=== PATIENT | female | born 1975 | race Caucasian/White ===

== ENCOUNTER → 2017-10-01 10:20 | Outpatient (CLI) | payer OTHER, SELFPAY ==
[2017-10-01 10:36] LABS: Bacteria Urine None Seen; RBC Urine None Seen (0-5/HPF)
[2017-10-01 12:00] LABS: Appearance Urine UA CLEAR; Bilirubin Urine UA NEGATIVE (NEGATIVE); Color Urine UA YELLOW; Glucose Urine UA NEGATIVE (Normal); Ketones Urine UA NEGATIVE (NEGATIVE); Leukocyte Esterase Urine UA NEGATIVE (NEGATIVE); Nitrite Urine UA Negative (Negative); Occult Blood Urine UA TRACE-LYSED (Negative); Protein Urine UA NEGATIVE (Negative); Specific Gravity Urine UA >=1.030 (1.000-1.035); Urobilinogen Urine UA 0.2 E.U./dL (0.2)
[2017-10-01 12:09] LABS: Add Manual Diff / Slide Review NO; Eosinophils Percent Auto 2.1 % (2-4); Hematocrit 34.7 % (36-46); Hemoglobin 11.4 g/dL (12.0-16.0); Lymphocytes Percent Auto 33.5 % (25-40); Mean Corpuscular HGB Conc 32.8 % (30-36); Mean Corpuscular Hemoglobin 29.8 PG (26-34); Mean Corpuscular Volume 91.1 fL (80-100); Monocytes Percent Auto 7.9 % (3-14); Neutrophils Absolute Auto 3400 /uL (3000-5900); Neutrophils Percent Auto 55.5 % (50-75); Platelet Count 328 X10^3/uL (150-400); Red Blood Cell Count 3.81 X10^6/uL (4.0-5.2); White Blood Cell Count 6.1 X10^3/uL (4.5-11.0)
[2017-10-01 12:26] LABS: Blood Urea Nitrogen 12 mg/dL (7-17); Calcium 7.9 mg/dL (8.4-10.2); Carbon Dioxide 28 mmol/L (22-32); Chloride 102 mmol/L (98-107); Estimated Glomerular Filt Rate > 60.0 mL/min (>60); Glucose 94 mg/dL (70-100); HEMOLYSIS < 15 (0-50); Potassium 4.7 mmol/L (3.4-5.1); Sodium 141 mmol/L (137-145); WBC Urine 5-10/HPF (0-5/HPF)
[2017-10-01 12:27] LABS: Amorphous Sediment Urine 2+; Squamous Epithelial Cell Urine 5-10 /HPF
== END ==
PROVIDERS: PCP Family Medicine; Visit Provider Obstetrics & Gynecology
DX: N93.9 Abnormal uterine and vaginal bleeding, unspecified (principal)
CPT/HCPCS: 36415; 80048; 81001; 85025; 86850; 86900; 86901; 87086

== ENCOUNTER 2017-10-04 09:55 | Inpatient (IN) | payer OTHER, SELFPAY ==
[2017-10-04] VITALS (11 sets, daily range): BP systolic 104–133; BP diastolic 64–86; PULSE 70–86; RESP 10–16; TEMP 36.3–36.7; O2SAT 94–99; BMI 47.2; BMI 48.0
--- NOTE | 2017-10-04 | PATH_ITS ---
[facility] Accession Number: [id number] . 01 Material submitted: . UTERUS AND BILATERAL FALLOPIAN TUBES . 02 Diagnosis: Uterus and Bilateral Fallopian Tubes, Laparoscopic-Assisted Vaginal Hysterectomy with Bilateral Salpingectomy (Weight 245 grams): Cervix with no significant histomorphologic abnormality. Endocervix with no significant histomorphologic abnormality. Weakly proliferative endometrium with stromal pseudodecidualized change, suggestive of possible exogenous hormone effect. Negative for glandular hyperplasia, cytologic atypia, and malignancy. Myometrium with involvement by adenomyosis and with multiple intramural leiomyomas (0.3-1.8 cm in greatest dimension). Uterine serosa with focal adhesions, non-specific. Segments of fallopian tube x 2 with benign paratubal cysts (0.1-0.7 cm in greatest dimension); negative for atypia and malignancy. MR/10/06/2017 . 02 Electronically signed: . Kaylie Grossman MD, Pathologist NPI- [id number] . 01 Gross description: . Received in formalin, labeled uterus and bilateral fallopian tubes, is a uterus (245 grams, 6.8 cm AP, 14.5 cm SI, 7.5 cm ML) and two detached fimbriated fallopian tube segments (tube #1: length-1.6 cm, diameter-0.8 cm; tube #2: length-2.0 cm, diameter-0.7 cm). The specimen cannot be oriented as to anterior and posterior. The ovaries are absent. The cervix (2.0 cm AP, 3.0 cm ML) has a transverse os and patent endocervical canal. The endometrium (average thickness-0.1 cm) is arteaga-pink smooth and flat. The myometrium (thickness - 3.5 cm) is arteaga-white and contains multiple solid firm white whorled well-circumscribed homogenous nodules (0.3 x 0.2 x 0.1 cm - 1.8 x 1.5 x 1.2 cm). The serosa is pale arteaga smooth and shiny. The fallopian tubes have dark maroon smooth and shiny serosa and multiple paratubal cysts (0.1 cm - 0.7 cm) containing clear colorless fluid. The lumens are arteaga and unremarkable. Section code: (A1) cervix; (A2) cervix, opposite side; (A3-A5) endomyometrium; (A6-A8) endomyometrium, opposite side; (A9) fallopian tube segment #1, bivalved, entirely submitted; (A10) fallopian tube segment #2, bivalved, entirely submitted. ([id number]) /[facility] . 02 Pathologist provided ICD-10: N92.4 . 02 CPT . 765645 Performed at: [facility] [address] [address], [place], [place] [id number] MD Abdiel Yee MD Phone: [phone] Performed at: 02 [facility] [place] [address] [address] [place] [id number] MD Brando Cheney MD Phone: [phone]
[2017-10-04] MEDS: LACTATED RINGERS 1,000 ML 100 ML IV ×2 (11:08→16:45)
--- NOTE | 2017-10-04 11:09 | SUR.PREOP ---
pt took her own amlodipine, atenolol and levothyroxine at home at 0815 today
--- NOTE | 2017-10-04 11:26 | PM.PREOP ---
Pre-operative Note Interval Note Pre-op Check: Yes History & Physical Reviewed by Physician Changes: No
[2017-10-04] MEDS: CEFAZOLIN 2 GM/100 ML FROZ.PIGGY IV (11:50)
--- NOTE | 2017-10-04 12:32 | SUR.OPER ---
Lithotomy on padded OR bed. [place] Pad Positioner under torso. Head on pillow, arms foam padded on padded armboards and secured. Bilateral arms <90 abduction. Legs secured in padded yellow fins stirrups.
[2017-10-04] MEDS: BUPIVACAINE 0.25% (PF) VIAL 30 ML INJ (12:41)
[2017-10-04] MEDS: LIDOCAINE 1% W/EPI INJ 30 ML INJ (12:42)
[2017-10-04] MEDS: ACETAMINOPHEN IV 1,000 MG/100 ML VIAL 400 MG IV (13:24)
[2017-10-04] MEDS: LACTATED RINGERS 1,000 ML 42 ML IV (13:43)
--- NOTE | 2017-10-04 15:35 | PM.GYNOP.1 ---
Operative Date/Time/Diagnoses Date of procedure: 10/04/17 Time of procedure: 12:00 Pre-op diagnosis: Abnormal uterine bleeding Post-op diagnosis: same (And pelvic adhesions) Procedure: Procedures Operation Date: 10/04/17 11:15 Actual Procedures Side Surgeon p Laproscopic Assisted Vaginal Hysterectomy with Bilateral Salpingectomy and lysis of adhesions Not Applicable Cristy Bella MD Indications: The patient is a 42-year-old 4, para 3, abortus 2 female here for hysterectomy for definitive surgical management of menorrhagia. Her symptoms increased after her thyroidectomy in 2012. She has been using a bilateral tubal ligation for contraception since 2009. Cycles occur monthly and last 5-7 days. The 1st 2 days she goes through 10-12 tampons each day and is unable to work due to gushes and passage of frequent clots, which require uses the restroom every 20-30 minutes. She denies any dysmenorrhea or bleeding between menses. She states that she was hospitalized October 2016 when she was known to have severe anemia and hypocalcemia. Transfusion was nearly indicated, but she received IV iron and calcium supplementation only during that stay. She denies any lightheadedness or dizziness. She does have nausea and cramping with her cycles. Past trials of control pills have caused itching and swelling, and she declines progestin intrauterine device. She is currently using the NuvaRing and control pills to manage her bleeding while awaiting surgery. After review of her management options, including medical versus surgical (including hysteroscopy, Dilation and Curettage, and ablation versus hysterectomy), she desired definitive surgical management in the form of hysterectomy. She has had 2 prior sections, and we discussed the possible need for abdominal hysterectomy but will try for laparoscopic-assisted approach. The risks, benefits, limitations, alternatives, and expectations of surgery were discussed, and the consent was reviewed and signed prior to the surgery. Surgeon: Cristy Bella [employer] Worker: Khurram Pimentel Anesthesia Type: General and Local (0.5% marcaine, and 1% lidocaine with epi) Operative Notes Findings: Exam under anesthesia: Uterus anteverted and approximately 8 weeks in size. No adnexal masses were palpable. Operative findings: Dense adhesions were present from the anterior uterine serosa to the anterior peritoneum, primarily at the level of the bladder and superiorly. There were also adhesions involving the round ligaments bilaterally. Overall, the extensive nature of the adhesions the manipulation of the uterus difficult during the laparoscopy. The ovaries appeared normal, and no cysts or endometriosis lesions were noted. The fallopian tubes were status post ligation but otherwise normal in appearance. There was a dense omental adhesion to the anterior abdominal wall, just behind the umbilicus. This was left in situ as it was extensive and not interfering with the surgery. The liver appeared slightly rounded, and the gallbladder appeared enlarged. No other abdominal findings were notable. Closure Type: primary Specimen(s): left tube, right tube and uterus (Uterus, cervix, and bilateral fallopian tubes sent as one specimen) Applied: catheter Estimated blood loss (mL): 100 Blood products transfused: none Procedure in detail: The patient was taken to the operating room, where general endotracheal anesthesia was administered without complications. The patient was placed into the low dorsal lithotomy position with her lower extremities in [place] stirrups. Exam under anesthesia was then performed with the findings noted above. Perineum, vagina, and abdomen were then prepped and draped in a sterile fashion. A Villarreal catheter was then placed. Procedure time-out was then performed. Attention was first turned to the perineum for placement of the uterine manipulator. A sterile bivalve speculum was inserted into the vagina, then the anterior lip of the cervix was grasped with a single-tooth tenaculum. The cervix was then serially dilated using Tip dilators until a ZUMI uterine manipulator could be advanced. The balloon was inflated, then the tenaculum and speculum removed from the vagina. Local anesthetic was then injected infraumbilically using 0.25% Marcaine with epinephrine. A vertical skin incision was then made with a scalpel below the umbilicus measuring approximately 7 mm in length. The abdominal wall was then grasped and tented up while a Veress needle was inserted through the incision. Saline drop test was suggestive of intraperitoneal placement. Carbon dioxide gas insufflation was then performed with appropriate opening pressures noted. After instilling approximately 2 L of carbon dioxide, a 5 mm 0 degree laparoscope within a 5 mm trocar was inserted through the anterior layers of the abdominal wall using Optiview technique. The abdomen and pelvis were visualized with the findings as noted above. The patient was placed into Trendelenburg position for better visualization. A second and third trocar was inserted at the patient's lower quadrants. These were done by first instilling local anesthetic, then incising the skin and inserting a 5 mm trocar under direct visualization using the laparoscopic. An atraumatic grasper was then utilized to manipulate the tissue and improve visualization throughout the pelvis. Attention was 1st turned to dissection of the anterior uterine adhesion. While pulling gentle traction on the anterior abdominal wall, the adhesions were freed from the uterus using the Olympus PlasmaKinetic. Once the dense adhesion was , the remainder of the surrounding tissue with gentle traction. Attention was 1st turned to the right fallopian tube, which was grasped at the distal end. After applying gentle traction the distal then proximal portions of the fallopian tube, the tissue was from the underlying mesosalpinx and ovary using the Olympus PlasmaKinetic. Gentle traction was then applied on the left distal and proximal portions of the left fallopian tube which was pulled medially and superiorly, and the left tube from the underlying mesosalpinx using using the Olympus PlasmaKinetic. The left round ligament was then cross clamped, cauterized, and cut. Residual bleeding was controlled with Bovie cautery. There were dense adhesions on this side, but once dissected, the tissue started to separate easily, and the left side of the broad ligament was carried down to start the left aspect of the bladder flap dissection. Dense adhesions from the bladder were noted at the midline, and initial dissection was performed using the PlasmaKinetic then gentle traction. The left utero-ovarian pedicle was then cross clamped, cauterized, and cut, freeing the left ovary from the uterus. Some residual para uterine tissue was freed with Bovie cautery and gentle traction, skeletonizing the left uterine vessels. The left uterine vein and artery were then cross clamped, cauterized, and cut, and additional cautery applied as needed to achieve hemostasis. Attention was then turned to the patient's right adnexa. The right round ligament was cross clamped, cauterized, and cut, then the right anterior leaf of the broad ligament was undermined with the PlasmaKinetic to create the right side of the bladder flap using Bovie cautery. This incision was extended to the midline until the dense adhesion was encountered. The right utero-ovarian pedicle was cross clamped, cauterized, and cut, freeing the right ovary from the uterus. The right uterine vessels were then skeletonized, cross clamped cauterized, and cut. Additional cautery was applied as needed to achieve hemostasis. The pelvis was then irrigated and suctioned. The dense bladder adhesion at the midline was then dissected a bit more using the PlasmaKinetic. Once hemostasis was ensured attention was turned to the perineum for the vaginal portion of the case. Instruments were removed from the abdomen, leaving the trocars in place. The majority of the carbon dioxide gas was allowed to escape. The uterine manipulator was removed. A sterile weighted speculum was placed in the posterior vagina and a [place] placed in the anterior vagina. The cervix was grasped with double tooth tenaculum, then 1% lidocaine with epinephrine was injected circumferentially for hemostasis. A circumferential incision was then made with Bovie cautery. Using blunt dissection with the lap cutter truer operator's finger the vaginal mucosa was gently pushed back off the cervix better visualizing the plane for the anterior-posterior peritoneal entry. The posterior peritoneum was grasped and incised sharply using Metzenbaum scissors. The midline of the posterior vaginal cuff and peritoneum was then tagged with an 0 Vicryl suture for later identification. The Auvard speculum was then inserted into the posterior peritoneum. The anterior peritoneum could not be easily entered due to adhesions. Therefore, the decision was made to proceed with additional inferior pedicles until the peritoneum could be entered.. The left uterosacral ligament was cross clamped with a Janelle clamp then cut and suture ligated with an 0 Vicryl suture in a Janelle stitch fashion. This was tagged for later identification. This step was performed on the right uterosacral ligament clamped then cut and suture ligated with an 0 Vicryl suture. The right cardinal and inferior uterine vessels were then cross clamped with the Janelle clamp cut and suture ligated with an 0 Vicryl suture. This step was then performed on the patient's left cardinal and uterine vessels as well. The anterior peritoneum was then entered bluntly using a combination of pressure with the lap cutter truer operator's fingers and then placement of the [place]. Two additional pedicles were cross-clamped, cut, and suture ligated with an 0 Vicryl on the patient's right side. The uterus was then inverted and delivered through the vaginal opening. One additional small pedicle on each side was cross clamped with a Janelle clamp then cut to free the uterus and fallopian tubes from the surrounding para uterine tissue. These pedicles were then suture ligated with an 0 Vicryl suture in a [id number] fashion. The uterus and bilateral fallopian tubes were then removed through the vagina. The pedicles were inspected. Some residual bleeding was controlled with [id number] sutures as needed. The peritoneum was then closed with a pursestring suture of 0 Vicryl, starting anteriorly at the bladder peritoneum including both uterosacral ligaments and skiving across the posterior peritoneum. This was tied down, then the vagina was then irrigated with sterile saline. The vaginal mucosa was then closed with serial [id number] sutures of 0 Vicryl. Carbon dioxide gas was then reinflated into the abdomen. The cuff was irrigated and suctioned. Some residual bleeding anterior to the cuff was controlled with the PlasmaKinetic. The omental adhesion was visualized and noted to be hemostatic. The ovaries and adhesion dissection areas were examined and no residual bleeding was noted. At this point the laparoscopic portion of the procedure was deemed complete. The carbon dioxide gas was allowed to escape and the trocars removed from the abdomen. The trocar sites were then closed with 4-0 Monocryl in a subcuticular fashion. Exofin skin glue was then applied. The sponge-stick was then removed from the vagina. At this point the procedure was deemed complete. Sponge, lap, and needle count were correct x3. The patient was subsequently awakened, extubated, and transferred to the PACU in stable condition. Complications: none Post-operative Condition: stable Disposition: Acute Care Plan for aftercare: Admit to PACU then the islas.
--- NOTE | 2017-10-04 15:43 | SUR.PHASEI ---
stable pacu stay, immediately placed on cpap with 4 l now 2l o2. sats maintained pt transfered up to room 202 via bed on n/c 02 at 3/l and left in stable condition. aly pad c/d/i. abdomen with glued puncture sites intact.
--- NOTE | 2017-10-04 18:00 | SUR.PHASEI ---
pt after dressing became nauseated and vomited 100 mls of yellow fluid. pt felt better afterwards and was ready to go. pt left in stable condition.
[2017-10-04] MEDS: KETOROLAC 30 MG/ML VIAL IV (18:05)
[2017-10-04] MEDS: METOCLOPRAMIDE 10 MG/2 ML INJ IV (18:07)
--- NOTE | 2017-10-04 19:03 | PC.NURSE ---
NAUSEA BETTER NOW AND PAIN COVERED WITH TORADOL,DENIES NEEDS AT THIS TIME.
[2017-10-04] MEDS: DOCUSATE 250 MG CAPSULE PO (20:17)
[2017-10-04] MEDS: OXYCODONE/ACETAMINOPHEN 5/325 TABLET 2 TAB PO (21:13)
[2017-10-05] VITALS (7 sets, daily range): BP systolic 104–133; BP diastolic 66–89; PULSE 76–91; RESP 15–17; TEMP 36.6–37.1; O2SAT 95–99
[2017-10-05] MEDS: OXYCODONE/ACETAMINOPHEN 5/325 TABLET 2 TAB PO ×2 (01:16→07:59)
[2017-10-05] MEDS: LACTATED RINGERS 1,000 ML 100 ML IV (02:15)
--- NOTE | 2017-10-05 05:06 | PC.NURSE ---
NOC shift: Pt requested prn pain medication x1 with good results, [place] cath is patent draining clear yellow urine, cpap with 2L bleed in at night. Lap site DISABILITY ADVOCATE and edges well approximated. Minimal assist with repositioning in bed. Pt splinting ABD to cough, deep breathing cough encouraged.
[2017-10-05 07:16] LABS: Add Manual Diff / Slide Review NO; Basophils Percent Auto 0.2 % (0-2); Hematocrit 31.6 % (36-46); Hemoglobin 10.4 g/dL (12.0-16.0); Lymphocytes Percent Auto 11.6 % (25-40); Mean Corpuscular HGB Conc 32.9 % (30-36); Mean Corpuscular Hemoglobin 29.9 PG (26-34); Mean Corpuscular Volume 90.7 fL (80-100); Monocytes Percent Auto 5.6 % (3-14); Neutrophils Absolute Auto 9200 /uL (3000-5900); Neutrophils Percent Auto 82.6 % (50-75); Platelet Count 312 X10^3/uL (150-400); Red Blood Cell Count 3.48 X10^6/uL (4.0-5.2); White Blood Cell Count 11.2 X10^3/uL (4.5-11.0)
[2017-10-05 07:21] LABS: BUN Creatinine Ratio 13.8 (6-22); Blood Urea Nitrogen 11 mg/dL (7-17); Calcium 7.3 mg/dL (8.4-10.2); Carbon Dioxide 26 mmol/L (22-32); Chloride 103 mmol/L (98-107); Estimated Glomerular Filt Rate > 60.0 mL/min (>60); Glucose 127 mg/dL (70-100); HEMOLYSIS < 15 (0-50); Potassium 4.6 mmol/L (3.4-5.1); Sodium 139 mmol/L (137-145)
--- NOTE | 2017-10-05 11:47 | PC.NURSE ---
Addendum entered by Divina Rojo R.N. 10/05/17 12:19: Removed [place], pt tolerated well. Help locked pt per verbal order, and ambulated pt to BR where pt was able to void on her own. Patient sitting up in chair after ADL's eatting lunch. Held atenolol in hopes BP would increase after ambulation. BP prior to ambulation was 104/67. After pt has ambulated BP is at 122/78. Original Note: AM shift Patient AO, pleasant, and receptive to care. Patient c/o moderate pain and I administered 5mg Percocet. [place] is draining to gravity, PIV patent with LR at 100/hr. Lap sites open to air. Most of the patients medications were DC'ed and I was unable to locate a plan of care so I spoke on the phone to Dr. Bella who gave me verbal orders to DC [place], hep lock patient (if drinking appropriate amount of fluids), continue Synthroid, calcitroil, atenolol, but to hold patient's amlodipine.
[2017-10-05] MEDS: CALCITRIOL 0.25 MCG CAPSULE PO (11:55)
[2017-10-05] MEDS: DOCUSATE 250 MG CAPSULE PO (11:55)
[2017-10-05] MEDS: LEVOTHYROXINE 100 MCG TABLET 200 MCG PO (11:56)
--- NOTE | 2017-10-05 17:52 | PM.PNPO.1 ---
Subjective Date Patient Seen: 10/05/17 Time Patient Seen: 17:20 Interval history: The patient did well overnight with no acute events. She has been using her CPAP machine without any problems. Her Villarreal catheter was removed later this morning, and she has met her due to void without any problems. She has been tolerating a regular diet and had been ambulating in the room. She denies any nausea, vomiting, headaches, chest pain, or severe pain. She recalls her last dose of Percocet was early this morning. She feels ready to be discharged home. Exam Vital Signs (past 8 hours): - 10/05/17 11:15 10/05/17 11:50 10/05/17 12:51 Temperature 98.1 F Pulse Rate 83 Respiratory Rate 16 16 Blood Pressure 115/89 H 104/67 122/78 H Pulse Oximetry 97 97 10/05/17 16:21 Temperature 98.7 F Pulse Rate 91 H Respiratory Rate 16 Blood Pressure 133/79 H Pulse Oximetry 95 Oxygen Delivery Method CPAP Oxygen Flow Rate 0 Narrative Exam Narrative: General: The patient is sitting on the edge of the bed in no apparent distress, alert and oriented x3. Lungs: Clear with no wheezes or crackles. Heart: Regular rate and rhythm, no murmurs, rubs, or gallops. Abdomen: Soft, obese, bowel sounds heard throughout, appropriately tender near incisions. Incisions: Skin glue intact at 3 laparoscopy incisions. No erythema, discharge, or separation. Extremities: Warm and well perfused with no clubbing, cyanosis, or edema. Objective Labs Result Diagrams: 10/05/17 06:47 10/05/17 06:47 Labs: Laboratory Results - last 24 hr 10/05/17 10/05/17 06:47 06:47 WBC 11.2 H RBC 3.48 L Hgb 10.4 L Hct 31.6 L MCV 90.7 MCH 29.9 MCHC 32.9 RDW 15.0 H Plt Count 312 Neut % (Auto) 82.6 H Lymph % (Auto) 11.6 L Bennett % (Auto) 5.6 Eos % (Auto) 0.0 L Baso % (Auto) 0.2 Neut # (Auto) 9200 H Sodium 139 Potassium 4.6 Chloride 103 Carbon Dioxide 26 BUN 11 Creatinine 0.80 Estimated GFR > 60.0 BUN/Creatinine Ratio 13.8 Glucose 127 H Calcium 7.3 L Assessment & Plan Post-op (1) H/O hysterectomy for benign disease: Onset Date: ~09/2017 Current Visit: Yes Status: Acute Assessment and plan: The patient is postoperative day 1 status post uncomplicated laparoscopic assisted vaginal hysterectomy with bilateral salpingectomies. She is doing well and meeting discharge criteria. 1. Plan discharged home. 2. Discussed medications, precautions, expectations, limitations, and follow up plan. 3. See discharge instructions for more details. Postoperative Procedures Operation Date: 10/04/17 11:15 Actual Procedures Side Surgeon p Laproscopic Assisted Vaginal Hysterectomy with Bilateral Salpingectomy and lysis of adhesions Not Applicable Cristy Bella MD Postoperative day: 1 Postoperative status: doing well Postoperative plan: discharge Time Spent With Patient less than 15 minutes Quality VTE Deep Vein Thrombosis/Pulmonary Embolism Present on Admission: No
--- NOTE | 2017-10-05 18:00 | P.DS_ITS ---
History of Present Illness Date Patient Seen: 10/05/17 Time Patient Seen: 17:20 Chief complaint: [id number] LAVH VS KYLAH Narrative: The patient is a 42-year-old 4, para 3, abortus 2 female admitted for hysterectomy for definitive surgical management of menorrhagia. Her symptoms increased after thyroidectomy in 2012. She has been using a bilateral tubal ligation for contraception since 2009. Cycles occur monthly and last 5-7 days. After review of all her management options the patient strongly desired hysterectomy. We discussed the possibility of a laparoscopic- assisted vaginal hysterectomy versus a total abdominal hysterectomy. The risks , benefits, limitations, alternatives, and expectations of surgery were discussed, and the consent was reviewed and signed prior to surgery. Discharge Providers Date of admission: 10/04/17 09:55 Primary care physician: Santhosh Garcia MD Consults: 10/04/17 13:30 Consult to Respiratory Therapy Evaluate & Treat Comment: Physician Instructions: Evaluate and treat 10/04/17 14:34 Consult to Respiratory Therapy Evaluate & Treat Comment: Physician Instructions: Evaluate and treat Discharge provider: Cristy Bella MD Discharge Date: 10/05/17 Summary Discharge Diagnosis: Abnormal uterine bleeding now status post hysterectomy. Hospital Course: The patient was admitted to the PACU immediately following an uncomplicated laparoscopic assisted vaginal hysterectomy with bilateral salpingectomies. Her postoperative course was uncomplicated. Her vital signs were normal and stable. She was discharged home on postoperative day 1, Voiding freely tolerating a regular diet, and controlling pain with oral pain medications. She resumed her home medications with the exception of amlodipine which was held given her normotensive state. She utilized her CPAP machine during her hospital stay. Status at Discharge Cognitive/behavioral status at discharge: Appropriate Functional status at discharge: independent ambulation Overall status at discharge: patient is progressing back to baseline (Patient is having appropriate postoperative pain.) Time Spent with Patient Less than 30 minutes Exam Vital Signs (past 8 hours): - 10/05/17 11:15 10/05/17 11:50 10/05/17 12:51 Temperature 98.1 F Pulse Rate 83 Respiratory Rate 16 16 Blood Pressure 115/89 H 104/67 122/78 H Pulse Oximetry 97 97 10/05/17 16:21 Temperature 98.7 F Pulse Rate 91 H Respiratory Rate 16 Blood Pressure 133/79 H Pulse Oximetry 95 Oxygen Delivery Method CPAP Oxygen Flow Rate 0 Narrative Exam Narrative: See progress note this date. Objective Labs Result Diagrams: 10/05/17 06:47 10/05/17 06:47 Labs: Laboratory Results - last 24 hr 10/05/17 10/05/17 06:47 06:47 WBC 11.2 H RBC 3.48 L Hgb 10.4 L Hct 31.6 L MCV 90.7 MCH 29.9 MCHC 32.9 RDW 15.0 H Plt Count 312 Neut % (Auto) 82.6 H Lymph % (Auto) 11.6 L Knox % (Auto) 5.6 Eos % (Auto) 0.0 L Baso % (Auto) 0.2 Neut # (Auto) 9200 H Sodium 139 Potassium 4.6 Chloride 103 Carbon Dioxide 26 BUN 11 Creatinine 0.80 Estimated GFR > 60.0 BUN/Creatinine Ratio 13.8 Glucose 127 H Calcium 7.3 L Discharge Plan Discharge Plan Patient Disposition: Home Discharge Med Rec/Prescriptions Prescriptions: Continue docusate calcium 240 mg Capsule 240 mg PO DAILY PRN (Reason: Constipation) RF: 0 atenolol 25 mg Tablet 25 mg PO DAILY RF: 0 amlodipine 10 mg Tablet 10 mg PO DAILY RF: 0 levothyroxine [Synthroid] 200 mcg Tablet 200 mcg PO DAILY RF: 0 calcitriol 0.25 mcg Capsule 0.25 mcg PO DAILY RF: 0 ferrous sulfate [Iron (ferrous sulfate)] 325 mg (65 mg iron) Tablet 325 mg PO DAILY RF: 0 Follow up/Referrals: Cristy Bella MD [Physician] - Santhosh Garcia MD [Primary Care Provider] - 10/14/17 10:45 am Provider Discharge Instructions Diet: Diet as Tolerated Activity: No heavy lifting for 2 weeks. No driving for 2 weeks. No intercourse for 6 weeks. No exercise for 4 weeks. Cold/Heat Therapy: As needed Skin/Wound/Dressing Care Skin care: May shower. Report to your healthcare provider any signs of infection, such as:: chills, fever, night sweats, increased pain and unusual drainage Dressing: No dressing present. Monitor incision sites for redness, discharge, or bleeding. Some bruising may be expected. Other wound treatment: Please see discharge instructions for limitations and precautions. Home medications are to be continued plus additional postoperative meds per handout. Visit Report/Discharge Packet Print Language: Macedonian Discharge Data Primary Care Provider: Santhosh Garcia Attending Provider: Cristy Bella Admit Date/Time: 10/04/17 09:55 Quality VTE Deep Vein Thrombosis/Pulmonary Embolism Present on Admission: No
== END 2017-10-05 18:35 | disposition home or self-care (01) | DRG 742 ==
PROVIDERS: Admitting Provider Obstetrics & Gynecology; PCP Family Medicine; Visit Provider Obstetrics & Gynecology
PROC: 0UT9FZZ Resection of Uterus, Via Natural or Artificial Opening With Percutaneous Endoscopic Assistance (ICD-10-PCS; principal; 2017-10-04 11:15)
DX: N92.0 Excessive and frequent menstruation with regular cycle (principal); Z68.42 Body mass index [BMI] 45.0-49.9, adult; I10 Essential (primary) hypertension; E03.9 Hypothyroidism, unspecified; E20.9 Hypoparathyroidism, unspecified; E66.9 Obesity, unspecified; G47.33 Obstructive sleep apnea (adult) (pediatric); N73.6 Female pelvic peritoneal adhesions (postinfective)
CPT/HCPCS: 36415; 80048; 85025; 88307; J0131; J0330; J0690; J1100; J1170; J1885; J2250; J2405; J2704; J2765; J3010

== ENCOUNTER → 2020-02-16 16:14 | Outpatient (CLI) | payer OTHER, SELFPAY ==
[2017-10-04 16:18] VITALS: BMI 48.0
--- NOTE | 2020-02-16 16:18 | DI.MRI.S_ITS ---
PROCEDURE: MR KNEE LT WO CON INDICATIONS: PAIN IN LEFT KNEE TECHNIQUE: Noncontrast sagittal PD fast spin echo and T2 fast spin echo with fat saturation, sagittal 3-D FLASH with fat saturation; coronal T1 spin echo and PD fast spin echo with fat saturation, and axial PD fast spin echo with fat saturation through the knee. COMPARISON: None. FINDINGS: Image quality: Diagnostic. Motion artifacts are noted. Menisci: Signal abnormality within posterior horn of medial meniscus is seen which does not extend to articular surface to meet the criteria for focal meniscal tear. The lateral meniscus demonstrate normal morphology and internal signal. The meniscal root ligaments appear intact. Cruciate ligaments: The anterior and posterior cruciate ligaments appear intact. Medial structures: The medial collateral ligament appears intact. The posterior oblique ligament, semimembranosus tendon insertions, oblique popliteal ligament, and meniscocapsular junction appear intact. Visualized portions of the pes anserinus tendons appear normal. No abnormal bursal fluid. Lateral structures: The lateral collateral ligament, long and short heads of the biceps femoris tendon appear intact. The popliteus tendon appears normal; the popliteofibular ligament appears intact. The posterosuperior and anteroinferior popliteomeniscal fascicles appear intact. The arcuate and fabellofibular ligaments appear intact, on either side of the lateral inferior geniculate artery. Iliotibial band appears normal. Anterior structures: The quadriceps and patellar tendons appear intact. Patellar alignment is normal. No femoral trochlear dysplasia or ventral trochlear prominence. No edema in the infrapatellar fat pad. Bones and cartilage: No bone marrow contusions or fractures. 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 Joint space: There is physiologic knee joint fluid. No Sidhu's cyst. Normal appearing synovial plicae are incidentally noted. IMPRESSION: 1. Slightly degraded study due to patient motion. 2. No gross focal meniscal tear. Myxoid degenerative changes in posterior horn of medial meniscus. 3. Cruciate ligaments are intact. 4. No marrow edema. No fracture or dislocation. Low-grade chondromalacia involving apex/lateral facet of patella cartilage. Dictated by: Vijay Kelly M.D. on 02/19/2020 at 8:48 Approved by: Vijay Kelly M.D. on 02/19/2020 at 8:54
== END ==
PROVIDERS: Referring Provider Nurse Practitioner Family; Visit Provider Nurse Practitioner Family
DX: M25.562 Pain in left knee (principal)
CPT/HCPCS: 73721

== ENCOUNTER → 2020-06-07 12:31 | Outpatient (CLI) | payer OTHER, SELFPAY ==
[2017-10-04 16:18] VITALS: BMI 48.0
--- NOTE | 2020-06-07 12:32 | DI.RAD.S_ITS ---
PROCEDURE: FL KNEE INJECTION MR/CT LT COMPARISON: None. INDICATIONS: Pain in left knee FINDINGS: After obtaining informed consent the medial patellofemoral joint margin was prepared and draped in sterile fashion and anesthetized with 1% lidocaine. Utilizing fluoroscopic assistance the needle was advanced into the patellofemoral joint, positioning was confirmed with injection of a small amount of nonionic contrast, and thereafter a gadolinium/saline solution was instilled for MR arthrography. IMPRESSION: The accessible knee joint injection for MR arthrography. Dictated by: Carlito Garcia M.D. on 06/07/2020 at 14:45 Approved by: Carlito Garcia M.D. on 06/07/2020 at 14:47
--- NOTE | 2020-06-07 12:33 | DI.MRI.S_ITS ---
PROCEDURE: MR KNEE LT W CON INDICATIONS: Pain in left knee TECHNIQUE: After the administration of 50 mL of dilute intra-articular Gadolinium contrast, sagittal T1 spin echo with fat saturation and PD fast spin echo with fat saturation, coronal T1 spin echo with and without fat saturation, coronal T2 fast spin echo with fat saturation, axial PD fast spin echo with fat saturation through the knee. COMPARISON: Located Within [facility], MR, MR KNEE LT WO CON, 02/16/2020, 16:48. FINDINGS: Menisci: Signal changes and T2 hyperintense appearance seen at the peripheral aspect of the posterior horn of the medial meniscus, suggestive of peripheral tear/meniscocapsular separation. There is also blunting of the body of the free margin of the medial meniscus. Lateral meniscus intact. Cruciate ligaments: Anterior cruciate ligament appears intact. Posterior cruciate ligament appears intact. Medial structures: The medial collateral ligament appears intact. Semimembranosus tendon appears intact. Visualized portions of the pes anserinus tendons appear normal. No abnormal bursal fluid. Lateral structures: The lateral collateral ligament intact. Biceps femoris tendon appears intact. Popliteus tendon grossly unremarkable. Iliotibial band appears intact. Anterior structures: Quadriceps tendon intact. Medial and lateral patellofemoral ligaments intact. There is mild patellar tendinopathy. Prepatellar and superficial infrapatellar subcutaneous edema/fluid. Bones and cartilage: No focal marrow contusion or discrete low signal fracture line. Within the medial compartment, no focal cartilage defect identified. Within the lateral compartment, no focal cartilage defect. Within the patellofemoral compartment, mild chondromalacia as before Joint space: No Sidhu's cyst. No specific evidence of intra-articular loose body. IMPRESSION: Ill-defined T2 hyperintense signal changes at the peripheral aspect of the posterior horn of the medial meniscus suspicious for peripheral tear/meniscocapsular separation. Marked blunting of the free margin of the medial meniscal body also suggestive of tear. This appears more conspicuous or new since the prior study from 02/16/20. Recommend clinical correlation and to history. Patellar tendinopathy with adjacent fluid/edema. This is thought to be distinct from the post-injection related changes. 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 No loose body identified. Dictated by: Quinton Lebron M.D. on 06/07/2020 at 14:41 Approved by: Quinton Lebron M.D. on 06/07/2020 at 14:53
== END ==
PROVIDERS: PCP Family Medicine; Referring Provider Family Medicine; Visit Provider Family Medicine
DX: M25.562 Pain in left knee (principal); M22.42 Chondromalacia patellae, left knee; R60.0 Localized edema
CPT/HCPCS: 27369; 73722; 77002

== ENCOUNTER → 2021-07-29 10:10 | Outpatient (CLI) | payer OTHER, SELFPAY ==
[2017-10-04 16:18] VITALS: BMI 48.0
[2021-07-29 12:00] LABS: COVID19 -Nasal RAPID Negative (Negative)
== END ==
PROVIDERS: PCP Family Medicine; Visit Provider Surgery
DX: Z20.822 Contact with and (suspected) exposure to COVID-19 (principal); Z01.812 Encounter for preprocedural laboratory examination
CPT/HCPCS: 87635; C9803

== ENCOUNTER 2021-07-30 12:01 | Day surgery (SDC) | payer OTHER, SELFPAY ==
[2017-10-04 16:18] VITALS: BMI 48.0
[2021-07-24 14:35] VITALS: BMI 48.4
--- NOTE | 2021-07-30 | PATH_ITS ---
[facility] Accession Number: [id number] . 01 Material submitted: . neck - 3 . 01 Diagnosis: Neck Mass, Excision: Benign lymph node with reactive changes, see microscopic description. Negative for granulomatous or suppurative inflammation. Negative for malignancy. Vera-terri fibroconnective and adipose tissue with focal chronic inflammation. [facility] 08/08/20211456 Local . 01 Comment: As part of ongoing supervisor type disk quality control, this case is also reviewed by Dr. Malia Shearer, hematopathologist, who agrees with the given interpretation. . 01 Electronically signed: . Jo Ann Mora MD, Pathologist NPI- [id number] . 01 Gross description: . Received in formalin labeled with the patient's name and neck mass consists of three pink-arteaga to yellow firm soft tissue fragments aggregating to 3.9 x 3.1 x 0.8 cm. No skin is identified and the fragments are differentially inked as follows: largest fragment blue, medium fragment green, smallest fragment black. The specimen is serially sectioned to reveal a pink to white firm cut surface. The entire specimen is submitted as follows: . A1: Blue fragment, patient admitting representative section. A2: Green fragment, patient admitting representative section. A3: Entire black fragment. ([id number]) A4: Green fragment, remaining tissue entirely submitted. A5-A6: Blue fragment, remaining tissue entirely submitted. ([id number]) ([id number]) /[facility] 08/08/20211456 Local . 01 Microscopic: . Microscopic examination reveals a lymph node with reactive changes, including open sinuses and follicles with reactive germinal centers. There are a few scattered histocytes. Atypical or large lymphocytes, and Hodgkin/Hodgkin-like cells are not identified. Granulomas are not identified. Suppurative inflammation or necrosis not seen. . To better evaluate the architecture and better characterize the lymphocyte populations, a panel of immunostains is performed with the following results: . CD3: T lymphocytes positive. CD5: T lymphocytes positive (negative for aberrant co-expression on the B lymphocytes). CD10: Lymphoid follicles positive. CD20: B lymphocytes positive. CD23: Follicular dendritic cells positive. BCL2: T lymphocytes (and fewer plasma cells) positive. Negative for co-expression on the germinal centers of the reactive follicles. BCL6: Lymphoid follicles positive. Cyclin D1: B lymphocytes negative. Proliferation marker Ki-67: Low (increased Ki-67 is limited within the reactive germinal centers). Toluca light chain immunostain: A subset of plasma cells positive. Lambda light chain immunostain: A subset of plasma cells positive. (Toluca and lambda light chains support polyclonal plasma cells and also show no restriction on the B lymphocytes.) CD30: Few scattered activated lymphocytes positive, negative for Hodgkin cells. CD15: Small myeloid cells positive, negative for Hodgkin cells. . In addition to the lymph node, there are fragments of soft tissue that show focal areas with mild, chronic-active inflammation and focal associated multinucleated giant cell reaction (negative for polarized material). This finding raises the possibility of a ruptured epidermal inclusion cyst (among others, e.g. foreign-body reaction, folliculitis, etc). . Furthermore, the reactive changes described on the lymph node may be secondary to the inflammation of the soft tissue noted if that area was in the vicinity of the lymph node. . Clinical and radiologic correlation is recommended. . * This test was developed and its performance characteristics determined by [employer]. It has not been cleared or approved by the U.S. Food and Drug Administration. The FDA has determined that such clearance or approval is not necessary. This test is used for clinical purposes. It should not be regarded as investigational or for research. . 01 Pathologist provided ICD-10: M79.89, R59.0 . 01 CPT . 992558, U33680, F03088 Specimen Comment: A courtesy copy of this report has been sent to [phone] Performed at: 01 [facility] [address] [place] [address] [address] [facility], [place], [place] [id number] MD Abdiel Yee MD Phone: [phone]
[2021-07-30] MEDS: LACTATED RINGERS 1,000 ML 100 ML IV (12:31)
[2021-07-30 12:33] VITALS: BP 134/95; PULSE 70; RESP 16; TEMP 36.2; O2SAT 98; BMI 48.4
--- NOTE | 2021-07-30 12:37 | PM.PREOP ---
Pre-operative Note Interval Note History & Physical reviewed/Exam performed by Physician: Yes Changes to H&P: No
[2021-07-30] MEDS: CLINDAMYCIN 900 MG/50 ML PIGGYBACK 50 MG IV (13:15)
--- NOTE | 2021-07-30 13:33 | SUR.OPER ---
Lateral on a perez bag, head on pillow, gel axillary roll in place, bottom leg bent with gel pad under knee to foot, upper leg straight and supported with pillows. Upper arm supported by pillows and secured over bottom arm to padded arm board. Safety belt at hip, tape over blanket lower legs.
[2021-07-30] MEDS: BUPIVACAINE 0.5% (PF) VIAL 30 ML INJ (13:56)
[2021-07-30 14:13] VITALS: BP 140/94; PULSE 69; RESP 24; TEMP 36.3; O2SAT 98
[2021-07-30 14:17] VITALS: BP 126/89; PULSE 70; RESP 18; O2SAT 100
[2021-07-30 14:22] VITALS: BP 127/84; PULSE 68; RESP 18; O2SAT 98
[2021-07-30 14:37] VITALS: BP 124/79; PULSE 66; RESP 15; TEMP 36.4; O2SAT 100
[2021-07-30] MEDS: OXYCODONE/ACETAMINOPHEN 5/325 TABLET 1 TAB PO (15:00)
[2021-07-30 15:05] VITALS: BP 123/81; PULSE 67; RESP 28; TEMP 36.4; O2SAT 99
--- NOTE | 2021-08-03 11:41 | P.OP_ITS ---
Operative Date/Time/Diagnoses Date of procedure: 07/30/21 Pre-op diagnosis: soft tissue mass of neck Post-op diagnosis: same Procedure & Clinicians Procedure: Excision of 4 cm soft tissue mass from the posterior base of neck Same procedure as scheduled: Yes Indications: Symptomatic soft tissue mass of the posterior base of neck Surgeon: Carlos Manuel Watkins Click Yes if Unassisted: Yes Anesthesia Type: General Operative Notes Findings: Soft tissue masses most consistent with previous sebaceous cyst Specimen(s): other (Neck mass) Estimated Blood Loss (mL): 10 Procedure in detail: Patient was brought to the operating room placed supine on the table. Bilateral lower extremity compression devices were applied. She received clindamycin prior to skin incision. She was then intubated within endotracheal tube. She was then positioned into the left lateral decubitus position and appropriately padded using a beanbag. She was then prepped and draped in sterile fashion and time-out was performed. An incision at the posterior base of the neck over the palpable soft tissue mass was made.. The mass was encountered it was a pproximately 4 cm in size and consistent with a sebaceous cyst. It was excised in its entirety. Hemostasis was achieved. The wound was closed in layers. The subcutaneous tissue closed with Vicryl skin with Monocryl followed by the application of Dermabond and Steri-Strips. She tolerated the operation well and was transferred to recovery in stable condition. Complications: none Post-operative Condition: stable Disposition: same day surgery
== END 2021-07-30 15:31 | disposition home or self-care (01) ==
PROVIDERS: PCP Family Medicine; Referring Provider Surgery; Visit Provider Surgery
PROC: (CPT 21552; principal; 2021-07-30 13:45)
DX: M79.89 Other specified soft tissue disorders (principal); R59.0 Localized enlarged lymph nodes; G47.33 Obstructive sleep apnea (adult) (pediatric); E03.9 Hypothyroidism, unspecified; E66.9 Obesity, unspecified; Z68.42 Body mass index [BMI] 45.0-49.9, adult
CPT/HCPCS: 21552; 82962; J2250; J2405; J2704; J3010

== ENCOUNTER → 2021-11-27 11:21 | Outpatient (CLI) | payer OTHER, SELFPAY ==
[2017-10-04 16:18] VITALS: BMI 48.0
[2021-11-27 14:31] LABS: COVID19 -Nasal RAPID Negative (Negative)
== END ==
PROVIDERS: PCP Family Medicine; Visit Provider Surgery
DX: Z01.812 Encounter for preprocedural laboratory examination (principal); Z20.822 Contact with and (suspected) exposure to COVID-19
CPT/HCPCS: 87635; C9803

== ENCOUNTER 2021-11-28 13:05 | Day surgery (SDC) | payer OTHER, SELFPAY ==
[2017-10-04 16:18] VITALS: BMI 48.0
[2021-11-25 10:47] VITALS: BMI 49.2
[2021-11-28] VITALS (7 sets, daily range): BP systolic 106–136; BP diastolic 72–87; PULSE 64–68; RESP 15–23; TEMP 36.1–36.2; O2SAT 96–100; BMI 49.2
--- NOTE | 2021-11-28 | PATH_ITS ---
[facility] Accession Number: [id number] No. of containers..01 Tissue . 01 Material submitted: . neck - NECK MASS . 01 Diagnosis: Neck, Excisions: Fragments of fibroadipose and skeletal muscle tissue with fibrosis, mixed inflammation (including multinucleated foreign body giant cell reaction) and scattered free hair shafts; see comment. [facility] 12/08/2021 1807 Local . 01 Comment: The findings are not entirely specific; however, they mostly appear reactive in nature and engender a broad differential diagnosis to include changes at the site of prior trauma, procedural site changes, or changes in the vicinity of a previously ruptured folliculitis or cyst. The examined sections are negative for malignancy. A PAS fungal stain performed on block A1 is negative for fungal hyphae. Clinical correlation is recommended. . 01 Electronically signed: . Dane Baeza MD, Dermatopathologist NPI- [id number] . 01 Gross description: . The specimen is received in formalin, labeled with the patient's name and neck mass, and consists of multiple yellow to pink-red, finely nodular, firm tissue fragments ranging from 1.2 cm to 3.5 cm in greatest dimension and aggregating to 4.6 x 4.3 x 1.5 cm. The external surfaces are differentially inked. Sectioning reveals a pink-arteaga, firm cut surface. [employer] sections are submitted in cassettes A1-A3. ([id number]) . The remaining specimen is submitted entirely in cassettes A4-A9. ([id number]) /[facility] 12/03/2021 0919 Local . 01 Pathologist provided ICD-10: R23.9 . 01 CPT . 116653, 655019 Specimen Comment: A courtesy copy of this report has been sent to [phone] Performed at: 01 [facility] [address], [place], [place] [id number] MD Abdiel Yee MD Phone: [phone]
[2021-11-28] MEDS: LACTATED RINGERS 1,000 ML 42 ML IV (13:41)
--- NOTE | 2021-11-28 14:18 | PM.PREOP ---
Pre-operative Note Interval Note History & Physical reviewed/Exam performed by Physician: Yes Changes to H&P: No
--- NOTE | 2021-11-28 14:58 | SUR.OPER ---
Prone on Kane frame, head in foam head support, gel pad under knees, pillow under lower legs, toes free of pressure, right arm tucked using draw sheet and towel clamps. Left arm extended on armboard and padded with gel pads. Safety belt at thigh and over trunk.
[2021-11-28] MEDS: CLINDAMYCIN 900 MG/50 ML PIGGYBACK 50 MG IV (15:00)
[2021-11-28] MEDS: BUPIVACAINE 0.25% (PF) VIAL 30 ML INJ (15:09)
--- NOTE | 2021-11-28 16:01 | PM.OP.1 ---
Operative Date/Time/Diagnoses Date of procedure: 11/28/21 Time of procedure: 16:01 Pre-op diagnosis: Soft tissue mass of posterior neck 4 cm Post-op diagnosis: same Procedure & Clinicians Procedure: Excision of soft tissue mass from posterior neck 4 cm Same procedure as scheduled: Yes Indications: Symptomatic soft tissue mass of posterior neck Surgeon: Carlos Manuel Watkins Anesthesia Type: General Operative Notes Findings: Multiple cystic structures within the subcutaneous tissue Specimen(s): other (Neck mass) Estimated Blood Loss (mL): 50 Procedure in detail: Patient was brought to the operating room. General anesthesia was induced she was intubated with an endotracheal tube. She received 900 mg of clindamycin prior to skin incision. She was placed into the prone position and appropriately padded. She was prepped and draped sterile fashion. Time-out was performed. Incision was made in a horizontal fashion distal posterior aspect of the neck. Subcutaneous tissue was divided. Within the subcutaneous tissue there was a soft tissue mass consistent with a cystic structure.. Cyst was drained and the sac was excised from the surrounding tissue. Hemostasis was achieved. Wound was thoroughly irrigated. A surgical drain was placed into the wound and brought out through the skin. The subcutaneous tissue was then closed with 2-0 Vicryl skin closed with running Monocryl followed by the application of Dermabond. Complications: none Post-operative Condition: stable Disposition: same day surgery
[2021-11-28] MEDS: ONDANSETRON 4 MG/2 ML INJ ×2 (16:28→16:57)
[2021-11-28] MEDS: OXYCODONE/ACETAMINOPHEN 5/325 TABLET 1 TAB PO (16:28)
[2021-11-28] MEDS: FAMOTIDINE 20 MG/2 ML VIAL IV (16:57)
== END 2021-11-28 17:40 | disposition home or self-care (01) ==
PROVIDERS: PCP Family Medicine; Referring Provider Surgery; Visit Provider Surgery
PROC: (CPT 21552; principal; 2021-11-28 14:00)
DX: R22.1 Localized swelling, mass and lump, neck (principal); I10 Essential (primary) hypertension; E03.9 Hypothyroidism, unspecified; E66.9 Obesity, unspecified; G47.33 Obstructive sleep apnea (adult) (pediatric); Z68.42 Body mass index [BMI] 45.0-49.9, adult
CPT/HCPCS: 21552; J0330; J2250; J2405; J2704; J3010